=== PATIENT | male | born 1975 | race American Indian/Alaskan Native ===

== ENCOUNTER 2020-01-04 11:56 | Emergency (ER) | payer SELFPAY ==
[2020-01-04 13:00] VITALS: BP 127/61
--- NOTE | 2020-01-04 13:04 | Event Note ---
ED Screening Note Date of service: 01/04/20 Time: 13:00 ED Screening Note: This is a 44 y.o. M. that presents to the ER with low back pain. Patient states he picked up a heavy box yesterday trying to help his father move. Reports pain is radiating down left leg. Reports pain with walking and tingling in left toes. He is walking with a walking provided by his father. This initial assessment/diagnostic orders/clinical plan/treatment(s) is/are subject to change based on patients health status, clinical progression and re- assessment by fellow clinical providers in the ED. Further treatment and workup at subsequent clinical providers discretion. Patient/guardian urged not to elope from the ED as their condition may be serious if not clinically assessed and managed. Initial orders include: ACC further evaluation
--- NOTE | 2020-01-04 13:41 | Emergency Department Report ---
ED Back Pain/Injury HPI - General Chief Complaint: Back Pain/Injury Stated Complaint: LFT SIDE HIP/BACK PAIN Time Seen by Provider: 01/04/20 12:59 Source: patient Mode of arrival: Ambulatory Limitations: No Limitations - History of Present Illness Initial Comments: This is a 44-year-old -[place] male who presents to the emergency room with low back pain radiating down left leg. Patient states he was assisting his father and moving from his home when injury occurred. He reports a box was 50 to 80 pounds. While lifting he heard a pop and felt a pull to the left lower back. States when he woke up this morning he felt radiating pain down left leg and tingling in the left toes. States father gave him his walker to help with walking. States pain is worse with weightbearing and movement. Currently reports pain is 5 out of 10 on pain scale and burning sensation. Denies change in urinary or bowel pattern, weakness, swelling, or bruising. MD Complaint: back pain Onset/Timin -: days(s) Similar Symptoms Previously: No Place: home Radiation: left leg Severity: moderate Severity scale (0 -10): 5 Quality: burning Consistency: intermittent Worsens With: movement, walking Context: while lifting Associated Symptoms: denies: numbness, difficulty urinating, incontinence, fever/chills - Related Data Previous Rx's Medication Instructions Recorded Last Taken Type Naproxen [EC-Naproxen] 500 mg PO BID PRN #30 tablet. 01/04/20 Unknown Rx methOCARBAMOL [Robaxin TAB] 500 mg PO TID PRN #15 tablet 01/04/20 Unknown Rx traMADoL [Ultram 50 MG tab] 50 mg PO Q6HR PRN #12 tablet 01/04/20 Unknown Rx Allergies Allergy/AdvReac Type Severity Reaction Status Date / Time No Known Allergies Allergy Verified 01/04/20 12:59 ED Review of Systems ROS: Stated complaint: LFT SIDE HIP/BACK PAIN Other details as noted in HPI Constitutional: denies: chills, fever Respiratory: denies: cough, shortness of breath, wheezing Cardiovascular: denies: chest pain, palpitations Gastrointestinal: denies: abdominal pain, nausea, diarrhea Musculoskeletal: back pain. denies: joint swelling, arthralgia Skin: denies: rash, lesions Neurological: denies: headache, weakness, paresthesias Psychiatric: denies: anxiety, depression ED Back Pain Physical Exam - Exam General: Vital signs noted. No distress. Alert and acting appropriately. Back/Abdomen: Yes Sacroiliac Tenderness (Left sacroiliac tenderness, no midline tenderness, no step-off, no deformity), Yes Straight Leg Raise Pain (Left leg), No Abdominal Tenderness, No Perithoracic Tenderness, No Perilumbar Tenderness, No Flank Tenderness Neuro: Yes Normal Sensation, Yes Normal DTR's, Yes Normal Gait, No Motor Weakness ED Course Vital Signs 01/04/20 12:12 Temperature 97.8 F Pulse Rate 79 Respiratory 18 Rate Blood Pressure 127/61 O2 Sat by Pulse 100 Oximetry ED Medical Decision Making - Medical Decision Making 44-year-old male complaining of low back pain radiating to left leg for 1 day. Patient is nontoxic appearing and stable. Vitals are normal. Negative midline tenderness on exam for signs of trauma or infection. Given history and exam, there is low suspicion for spine fracture or other acute spinal syndrome. Imaging and labs deferred at this time. Given analgesics and steroids. Patient instructed of symptoms being a self-limiting. Start analgesics and muscle relaxant. He was given strict return precautions for delayed possible symptoms. Patient discharged with prompt follow-up with primary care physician. Referral to orthopedic surgeon for as needed. Critical care attestation.: If time is entered above; I have spent that time in minutes in the direct care of this critically ill patient, excluding procedure time. ED Disposition Clinical Impression: Low back pain radiating to left leg, Sciatica of left side Disposition: - TO HOME OR SELFCARE Is pt being admited?: No Condition: Stable Instructions: Sciatica (ED), Lumbar Radiculopathy (ED) Additional Instructions: Rest Use ice or heat on affected area for 20 minutes and off for 2 hours. Take pain medication as needed for pain. Don't drive or operate heavy machinery while taking muscle relaxers because they may cause drowsiness. Follow up with Primary Care Provider in 2-3 days. Prescriptions: Naproxen [EC-Naproxen] 500 mg PO BID PRN #30 tablet.dr CAMPOS Reason: Pain, Moderate (4-6) methOCARBAMOL [Robaxin TAB] 500 mg PO TID PRN #15 tablet PRN Reason: Muscle Spasm traMADoL [Ultram 50 MG tab] 50 mg PO Q6HR PRN #12 tablet PRN Reason: Pain Referrals: [facility] [Outside] - 3-5 Days [facility] [Outside] - 3-5 Days [facility] [Outside] - 3-5 Days [facility] [Provider Group] - 3-5 Days Forms: Work/School Release Form(ED) Time of Disposition: 13:42
[2020-01-04] MEDS ORDERED: KETOROLAC 30 MG/1 ML INJ IM ONE (13:45)
[2020-01-04] MEDS ORDERED: dexAMETHasone 4 MG/ML VIAL IM ONE (13:45)
== END 2020-01-04 14:01 | disposition home or self-care (01) ==
LOC: ED 11:56
DX: M54.42 Lumbago with sciatica, left side (principal)
CPT/HCPCS: 96372; 99282; J1100; J1885